=== PATIENT | male | born 1970 | race African-American/Black ===

== ENCOUNTER 2019-07-25 16:10 | Observation (INO) ==
--- NOTE | 2019-07-25 16:28 | DR.CP ---
HPI Time Seen Time Seen by Provider: 07/25/19 16:20 HPI Comment HPI Comment: PATIENT IS 46YR OLD MALE IN ED WITH MID SUBSTERNAL CHEST PAIN TIMES 5HRS. PAIN 7/10, SHARP AND RADIATES TO LEFT SHOULDER ASSOCIATED WITH SOB, WEAKNESS BRIEF PERIOD OF DIAPHORESIS.PATIENT SAID PAIN STARTED MILD AND PROGRESSIVELY GOT WORSE. DID NOT TAKE ANY MEDICATION FOR PAIN. Complaint Chief Complaint Doctor Comments: CHEST PAIN TIMES SEVERAL HOURS. Reviewed Nurses Notes Review: Yes Source History Provided: Patient Mode of Arrival Mode of Arrival: Ambulatory Timing Came on: Suddenly Pain: Present Now Duration Duration: Constant Duration: Hours Location Location of Chest Pain: Chest Chest Pain Radiation Location: Left Shoulder Context Onset: With light exertion Cardiac Risk Factors: Smoker PE Risk Factors: None History of: None Prehospital Care: None Quality Quality: Sharp Severity Severity: Moderate Modifying Factors Worsens: Exertion and Movement Impoves: Rest Associated Signs and Symptoms Associated Signs and Symptoms: Shortness of Breath, Diaphoresis and Other (WEAKNESS.) ROS Review of Systems Constitutional: No Symptoms Reported, See HPI, Weakness and Fatigue; negative Fever Eyes: No Symptoms Reported and See HPI; negative Eye Pain, Blurred Vision, Photo phobia and Diplopia ENTM: No Symptoms Reported and See HPI; negative Ear Pain, Nose Discharge, Nose Congestion and Throat Pain Respiratoy: See HPI and Short of Breath; negative Productive Cough, Non-Produ ctive Cough and Wheezing Cardiovascular: No Symptoms Reported and See HPI; negative Chest Pain, Edema, Palpitations, Syncope and Cyanosis Gastrointestinal/Abdominal: No Symptoms Reported and See HPI; negative Abdominal Pain, Constipation, Diarrhea, Nausea and Vomiting Genitourinary: No Symptoms Reported and See HPI; negative Dysuria, Frequency, Hematuria and Pain Neurological: See HPI and Weakness; negative Headache and Dizziness Musculoskeletal: No Symptoms Reported, See HPI and Muscle Pain; negative Back Pain, Chest wall and Rib(s) Integumentary: No Symptoms Reported and See HPI; negative Change in Color, Rash and Juandice Hematologic/Lymphatic: No Symptoms Reported and See HPI; negative Easy Bleeding, Easy Bruising and Swollen Glands Endocrine: No Symptoms Reported and See HPI; negative Increased Thirst, Increased Urine and Decreased Appetite Psychiatric: No Symptoms Reported and See HPI All Other Systems: Reviewed and Negative PE Vitals Vitals: Temperature 97.7 F Pulse Rate 79 Respiratory Rate 21 Blood Pressure 137/90 O2 Sat by Pulse Oximetry 99 General Limitations: No Limitations General Appearance: Alert and In No Apparent Distress Head Head Exam: Normal Inspection and Atraumatic Eyes Eye exam: Normal Appearance, PERRL and EOMI; negative Scleral Icterus and Conjunctival Injection ENT ENT Exam: Normal Exam, Normal Oropharynx, Normal External Ear Exam and TM's Normal Bilaterally Chest Chest Inspection: Symmetric Chest Wall Rise and Other (CHEST PAIN); negative Tenderness and Rash Respiratory Respiratory Exam: Normal Lung Sounds Bilat; negative Accessory Muscle Use, Chest Wall Tenderness and Respiratory Distress Respiratory Exam: Bilateral: Clear to Auscultation Cardiovascular Cardiovascular Exam: Regular Rate, Normal Rhythm and Normal Heart Sounds; negative Systolic Murmur and Diastolic Murmur Pulse: Normal Edema: Normal Abdominal Exam Abdominal Exam: Normal Inspection, Normal Bowel Sounds and Soft; negative Tenderness Extremities Extremities Exam: Normal Inspection and Normal Capillary Refill; negative Tenderness, Edema and Calf Tenderness Back Back Exam: Normal Inspection; negative Tenderness, (R) CVA Tenderness, (L) CVA Tenderness, Paraspinal Tenderness and Vertebral Tenderness Neurologic Neurological Exam: Alert, Oriented X3 and CN II-XII Intact; negative Motor Sensory Deficit Psychiatric Psychiatric Exam: Normal Affect and Normal Mood Skin Skin Exam: Warm, Dry, Intact and Normal Color MDM Differential Diagnosis Differential Diagnosis: Angina, Chest Wall Pain, Cholelithasis, CHF, Costochondritis, Esophageal Reflux/Spasm, Gastritis, Myocardial Infarction, Pericarditis, Pleuritis, Pancreatitis, Pneumonia, Pneumothorax and Pulmonary Embolus COURSE Treatment Treatment: SEE ORDERS. Education/Counseling Education/Counseling: Patient Educated On: Treatment; negative Needs for Follow Up ROR Labs Reviewed Result Diagrams: 07/25/19 16:26 07/25/19 16:26 Laboratory: WBC 8.6 X10^3/uL (3.6-10.0) 07/25/19 16:26 RBC 4.81 X10^6/uL (4.7-6.0) 07/25/19 16:26 Hgb 15.3 g/dL (13.5-18.0) 07/25/19 16:26 Hct 44.4 % (42.0-54.0) 07/25/19 16:26 MCV 92.3 fL (80.0-100.0) 07/25/19 16:26 MCH 31.9 pg (27.0-34.0) 07/25/19 16:26 MCHC 34.6 g/dL (33.0-35.0) 07/25/19 16: RDW 12.9 % (11.6-16.5) 07/25/19 16:26 Plt Count 250 X10^3/uL (150.0-450.0) 07/25/19 16:26 MPV 6.6 fL (7.4-11.0) L 07/25/19 16:26 Neut % (Auto) 76.8 % (42.0-75.0) H 07/25/19 16:26 Lymph % (Auto) 15.8 % (21.0-51.0) L 07/25/19 16: [place] % (Auto) 6.1 % (0.0-13.0) 07/25/19 16: Eos % (Auto) 0.9 % (0.9-2.9) 07/25/19 16: Baso % (Auto) 0.4 % (0.2-1.0) 07/25/19 16:26 Neut # (Auto) 6.6 x10^3/uL (2.2-4.8) H 07/25/19 16:26 Lymph # (Auto) 1.4 X10^3/uL (1.3-2.9) 07/25/19 16:26 [place] # (Auto) 0.5 x10^3/uL (0.3-0.8) 07/25/19 16:26 Eos # (Auto) 0.1 x10^3/uL (0.0-0.2) 07/25/19 16: Baso # (Auto) 0.0 X10^3/uL (0.0-0.1) 07/25/19 16: Absolute Nucleated RBC 0.0 /100WBC 07/25/19 16: ESR 8 MM/HOUR (0-15) 07/25/19 16: PT 13.6 SECONDS (11.8-14.3) 07/25/19 16: INR Target Range - 07/25/19 16: INR 1.08 (0.8-1.3) 07/25/19 16: APTT 27.7 SECONDS (22.9-36.5) 07/25/19 16:26 PTT Comment - 07/25/19 16:26 D-Dimer 205 ng/mL (0-400) 07/25/19 16:26 Sodium 141 mmol/L (136-145) 07/25/19 16:26 Corrected Sodium 141 mmol/L (136-145) 07/25/19 16:26 Potassium 3.5 mmol/L (3.5-5.1) 07/25/19 16:26 Chloride 103 mmol/L (98-107) 07/25/19 16:26 Carbon Dioxide 29.3 mmol/L (21-32) 07/25/19 16:26 BUN 13 mg/dL (7-18) 07/25/19 16:26 Creatinine 1.45 mg/dL (0.70-1.30) H 07/25/19 16:26 Est GFR (MDRD) Af Amer > 60 (>60) 07/25/19 16:26 Est GFR (MDRD) Non-Af 55 (>60) L 07/25/19 16:26 Glucose 117 mg/dL (65-99) H 07/25/19 16:26 Calcium 8.6 mg/dL (8.5-10.1) 07/25/19 16:26 Corrected Calcium TNP 07/25/19 16:26 Magnesium 1.9 mg/dL (1.7-2.9) 07/25/19 16:26 Total Bilirubin 0.50 mg/dL (0.2-1.0) 07/25/19 16:26 AST 21 Units/L (15-37) 07/25/19 16:26 ALT 20 Units/L (12-78) 07/25/19 16:26 Alkaline Phosphatase 85 Units/L (46-116) 07/25/19 16:26 Creatine Kinase 372 Units/L (39-308) H 07/25/19 16:26 CK-MB (CK-2) 2.3 ng/mL (0-4.0) 07/25/19 16:26 CK/CKMB % Calc 0.6 % (<4) 07/25/19 16:26 Troponin I < 0.02 ng/mL (0-1.5) 07/25/19 16:26 C-Reactive Protein 5.60 mg/L (0-3.0) H 07/25/19 16:26 Total Protein 7.8 g/dL (6.4-8.2) 07/25/19 16:26 Albumin 3.7 g/dL (3.4-5.0) 07/25/19 16:26 Globulin 4.1 g/dL (2.5-4.5) 07/25/19 16:26 Albumin/Globulin Ratio 0.9 Ratio (1.1-2.1) L 07/25/19 16:26 Specimen Type Clean catch urine 07/25/19 18:16 Urine Color Yellow (YELLOW) 07/25/19 18:16 Urine Appearance Clear (CLEAR) 07/25/19 18:16 Urine pH 6.5 (5.0 - 8.0) 07/25/19 18:16 Ur Specific [place] 1.015 (1.000-1.030) 07/25/19 18:16 Urine Protein 1+ (NEGATIVE) 07/25/19 18:16 Urine Glucose (UA) Negative (NEGATIVE) 07/25/19 18:16 Urine Ketones Negative (NEGATIVE) 07/25/19 18:16 Urine Occult Blood 1+ (NEGATIVE) 07/25/19 18:16 Urine Nitrite Negative (NEGATIVE) 07/25/19 18:16 Urine Bilirubin Negative (NEGATIVE) 07/25/19 18:16 Urine Urobilinogen Normal (NORMAL) 07/25/19 18:16 Ur Leukocyte Esterase Negative (NEGATIVE) 07/25/19 18:16 Urine RBC 3-5 /HPF (0-3) A 07/25/19 18:16 Urine WBC 0-2 /HPF (0-5) 07/25/19 18:16 Ur Squamous Epith Cells Rare /HPF (NEGATIVE) 07/25/19 18:16 Urine Bacteria Negative /HPF (NEGATIVE) 07/25/19 18:16 Ur Culture Indicated? No/not indicated 07/25/19 18:16 Urine Opiates Screen Negative (NEG=<300) 07/25/19 18:16 Urine Methadone Screen Negative (NEG=<300) 07/25/19 18:16 Ur Barbiturates Screen Negative (NEG=<200) 07/25/19 18:16 Ur Phencyclidine Scrn Negative (NEG=<25) 07/25/19 18:16 Ur Amphetamines Screen Negative (NEG=<1000) 09/13/19 18:16 U Benzodiazepines Scrn Negative (NEG=<200) 07/25/19 18:16 Urine Cocaine Screen Negative (NEG=<300) 07/25/19 18:16 U Marijuana (THC) Screen Negative (NEG=<50) 07/25/19 18:16 EKG Rate: 66 [place]: Normal Rhythm: NSR Block: 1 Hypertrophy: None ST: New (PERICARDITIS.) Opioid Opioid Risk Tool Age (Chao box if 16-45): No Total: 0 Total Score Risk Category: Low Risk Copyright: Conrad CONTRERAS predicting aberrant behaviors
--- NOTE | 2019-07-25 16:35 | RAD ---
Chest, one view Indication: Chest pain Comparison: None Findings: Accounting for AP technique, the cardiac silhouette is borderline enlarged without congestive failure. No focal infiltrate or significant effusion. No pneumothorax. Impression: Borderline cardiomegaly without CHF or additional acute cardiopulmonary abnormality. Reported By:
[2019-07-25 16:37] VITALS: BMI 28.1
[2019-07-25 16:39] LABS: BASOPHILS % (AUTO) 0.4 % (0.2-1.0); EOSINOPHILS # (AUTO) 0.1 x10^3/uL (0.0-0.2); EOSINOPHILS % (AUTO) 0.9 % (0.9-2.9); HEMATOCRIT 44.4 % (42.0-54.0); HEMOGLOBIN 15.3 g/dL (13.5-18.0); LYMPHOCYTES # (AUTO) 1.4 X10^3/uL (1.3-2.9); LYMPHOCYTES % (AUTO) 15.8 % (21.0-51.0); MEAN CORPUSCULAR HEMOGLOBIN 31.9 pg (27.0-34.0); MEAN CORPUSCULAR HGB CONC 34.6 g/dL (33.0-35.0); MEAN CORPUSCULAR VOLUME 92.3 fL (80.0-100.0); MEAN PLATELET VOLUME 6.6 fL (7.4-11.0); MONOCYTES # (AUTO) 0.5 x10^3/uL (0.3-0.8); MONOCYTES % (AUTO) 6.1 % (0.0-13.0); NEUTROPHILS # (AUTO) 6.6 x10^3/uL (2.2-4.8); NEUTROPHILS % (AUTO) 76.8 % (42.0-75.0); PLATELET COUNT 250 X10^3/uL (150.0-450.0); RED BLOOD COUNT 4.81 X10^6/uL (4.7-6.0); RED CELL DISTRIBUTION WIDTH 12.9 % (11.6-16.5); WHITE BLOOD COUNT 8.6 X10^3/uL (3.6-10.0)
[2019-07-25] MEDS: ASPIRIN 81 MG CHEWTAB PO SCH (16:49)
[2019-07-25 16:52] LABS: BLOOD UREA NITROGEN 13 mg/dL (7-18); CALCIUM 8.6 mg/dL (8.5-10.1); CARBON DIOXIDE 29.3 mmol/L (21-32); CHLORIDE 103 mmol/L (98-107); COR NA(FOR HYPERGLY) 141 mmol/L (136-145); CREATININE 1.45 mg/dL (0.70-1.30); SODIUM 141 mmol/L (136-145); TROPONIN I < 0.02 ng/mL (0-1.5); eGFR NON BLACK RACES 55 (>60)
[2019-07-25 16:56] LABS: ALANINE AMINOTRANSFERASE 20 Units/L (12-78); ALBUMIN 3.7 g/dL (3.4-5.0); ALKALINE PHOSPHATASE 85 Units/L (46-116); ASPARTATE AMINO TRANSFERASE 21 Units/L (15-37); CKMB % 0.6 % (<4); CREATINE KINASE 372 Units/L (39-308); CREATINE KINASE MB 2.3 ng/mL (0-4.0); MAGNESIUM 1.9 mg/dL (1.7-2.9); TOTAL PROTEIN 7.8 g/dL (6.4-8.2)
[2019-07-25 18:25] LABS: BILIRUBIN,URINE NEGATIVE (NEGATIVE); BLOOD/HEMOGLOBIN,URINE 1+ (NEGATIVE); GLUCOSE, URINE NEGATIVE (NEGATIVE); KETONES,URINE NEGATIVE (NEGATIVE); LEUKOCYTE ESTERASE ,URINE NEGATIVE (NEGATIVE); NITRITES,URINE NEGATIVE (NEGATIVE); PH,URINE 6.5 (5.0 - 8.0); PROTEIN,URINE 1+ (NEGATIVE); UROBILINOGEN,URINE NORMAL (NORMAL)
[2019-07-25 18:34] LABS: APPEARANCE,URINE CLEAR (CLEAR); COLOR,URINE YELLOW (YELLOW)
[2019-07-25 18:37] LABS: BACTERIA,URINE NEGATIVE /HPF (NEGATIVE); SQUAMOUS EPITHELIAL CELL,UR RARE /HPF (NEGATIVE)
--- NOTE | 2019-07-25 18:41 | CT ---
CTA chest Indication: Mid sternal chest pain Technique: Helical CT images of the chest were obtained with IV contrast. Reformatted images in the coronal and sagittal planes and 3D MIP images were also generated for review. Comparison: None Findings: Contrast bolus timing is adequate for detection of PTE. No central or segmental pulmonary arterial filling defects are identified. There is no pulmonary arterial dilatation or evidence of right heart strain. The heart is mildly enlarged without significant pericardial effusion. The thoracic aorta and proximal great vessels are normal in contour and caliber. Central airways are patent. There is no mediastinal or bulky hilar lymphadenopathy. There are subtle ground-glass opacities within the right upper lobe. The remainder of the lungs are clear apart from minimal bibasilar atelectasis. No pleural effusion or pneumothorax. Limited images through the upper abdomen demonstrate no acute abnormality. No aggressive osseous lesions. Impression: No central or segmental PTE identified. Mild cardiomegaly without CHF. Subtle ground-glass opacities within the right lung apex. Correlate clinically for developing pneumonitis. Reported By:
[2019-07-25] MEDS ORDERED: DEMEROL INJ IM ONE (19:12)
[2019-07-25] MEDS ORDERED: ZOFRAN INJ 4 MG VIAL IM ONE (19:12)
[2019-07-25] MEDS ORDERED: ROCEPHIN VIAL 1 GRAM IVP ONE (19:36)
[2019-07-25] MEDS ORDERED: ROCEPHIN VIAL 1 GRAM ONE (19:44)
[2019-07-25] MEDS: DUONEB 0.5 MG/3 MG NEB PRN (20:10)
[2019-07-25] MEDS ORDERED: DUONEB 0.5 MG/3 MG ONE (20:10)
[2019-07-25] MEDS: NS 1000 ML 1,000 ML IV SCH (20:23)
[2019-07-25] MEDS ORDERED: NS 1000 ML 1,000 ML ONE (20:23)
[2019-07-25 23:48] LABS: CKMB % 0.4 % (<4); CREATINE KINASE 280 Units/L (39-308); CREATINE KINASE MB < 1.0 ng/mL (0-4.0); TROPONIN I < 0.02 ng/mL (0-1.5)
[2019-07-26 05:33] LABS: BASOPHILS % (AUTO) 0.3 % (0.2-1.0); EOSINOPHILS # (AUTO) 0.1 x10^3/uL (0.0-0.2); HEMATOCRIT 43.4 % (42.0-54.0); HEMOGLOBIN 14.7 g/dL (13.5-18.0); LYMPHOCYTES # (AUTO) 1.1 X10^3/uL (1.3-2.9); LYMPHOCYTES % (AUTO) 12.4 % (21.0-51.0); MEAN CORPUSCULAR HEMOGLOBIN 31.6 pg (27.0-34.0); MONOCYTES % (AUTO) 11.4 % (0.0-13.0); NEUTROPHILS # (AUTO) 6.6 x10^3/uL (2.2-4.8); NEUTROPHILS % (AUTO) 74.9 % (42.0-75.0); PLATELET COUNT 238 X10^3/uL (150.0-450.0); RED BLOOD COUNT 4.66 X10^6/uL (4.7-6.0); WHITE BLOOD COUNT 8.8 X10^3/uL (3.6-10.0)
[2019-07-26 05:45] LABS: ALANINE AMINOTRANSFERASE 16 Units/L (12-78); ALBUMIN 3.1 g/dL (3.4-5.0); ALKALINE PHOSPHATASE 94 Units/L (46-116); ASPARTATE AMINO TRANSFERASE 15 Units/L (15-37); BLOOD UREA NITROGEN 15 mg/dL (7-18); CALCIUM 8.2 mg/dL (8.5-10.1); CHLORIDE 107 mmol/L (98-107); COR CA(FOR HYPOALB) 8.9 mg/dL (8.5-10.1); COR NA(FOR HYPERGLY) 143 mmol/L (136-145); CREATININE 1.29 mg/dL (0.70-1.30); SODIUM 142 mmol/L (136-145); TOTAL PROTEIN 7.1 g/dL (6.4-8.2); eGFR NON BLACK RACES > 60 (>60)
[2019-07-26 05:51] LABS: CHOL/HDL RATIO 3.3 (0.0-5.0); CHOLESTEROL 143 mg/dL (0-200); CKMB % 0.4 % (<4); CREATINE KINASE 226 Units/L (39-308); CREATINE KINASE MB < 1.0 ng/mL (0-4.0); HDL CHOLESTEROL 44 mg/dL (40-60); TRIGLYCERIDES 92 mg/dL (0-150); TROPONIN I < 0.02 ng/mL (0-1.5)
[2019-07-26] MEDS ORDERED: ULTRAM PO PRN (05:53)
[2019-07-26] MEDS: DUONEB 0.5 MG/3 MG NEB PRN ×3 (06:15→15:40)
[2019-07-26] MEDS: ASPIRIN 81 MG CHEWTAB PO SCH (08:45)
[2019-07-26] MEDS: ROCEPHIN VIAL 1 GRAM IVP SCH (08:45)
[2019-07-26] MEDS: NS 1000 ML 1,000 ML IV SCH ×2 (10:36→20:39)
[2019-07-26 11:19] LABS: CKMB % 0.5 % (<4); CREATINE KINASE 193 Units/L (39-308); CREATINE KINASE MB < 1.0 ng/mL (0-4.0); TROPONIN I < 0.02 ng/mL (0-1.5)
[2019-07-26] MEDS ORDERED: K-RIDER 10 MEQ/NS 100 ML 10 MEQ/100 ML BAG IV PRN (14:17)
[2019-07-26] MEDS ORDERED: POTASSIUM CHL 40 MEQ/NS 0.45% 500 ML IV PRN (14:17)
[2019-07-26] MEDS ORDERED: KLOR-CON PO PRN (14:17)
[2019-07-26] MEDS ORDERED: POTASSIUM CHLORIDE LIQ 20 MEQ UDC PO PRN (14:17)
[2019-07-26] MEDS ORDERED: POTASSIUM CHL 60 MEQ/NS 0.45% 500 ML IV PRN (14:17)
[2019-07-26] MEDS ORDERED: MICRO K EXTEN CAP 10 MEQ PO PRN (14:17)
[2019-07-26 14:35] LABS: CKMB % 0.6 % (<4); CREATINE KINASE 175 Units/L (39-308); CREATINE KINASE MB < 1.0 ng/mL (0-4.0); TROPONIN I < 0.02 ng/mL (0-1.5)
[2019-07-26] MEDS: K-DUR TAB 20 MEQ PO PRN ×2 (15:20→20:39)
[2019-07-26 18:06] LABS: CKMB % 0.6 % (<4); CREATINE KINASE 157 Units/L (39-308); CREATINE KINASE MB < 1.0 ng/mL (0-4.0); TROPONIN I < 0.02 ng/mL (0-1.5)
[2019-07-27] MEDS: NS 1000 ML 1,000 ML IV SCH (00:11)
[2019-07-27] MEDS: DUONEB 0.5 MG/3 MG NEB PRN ×3 (00:40→08:45)
[2019-07-27 06:00] LABS: BASOPHILS # (AUTO) 0.1 X10^3/uL (0.0-0.1); BASOPHILS % (AUTO) 0.7 % (0.2-1.0); EOSINOPHILS # (AUTO) 0.2 x10^3/uL (0.0-0.2); EOSINOPHILS % (AUTO) 3.3 % (0.9-2.9); HEMATOCRIT 44.2 % (42.0-54.0); HEMOGLOBIN 15.1 g/dL (13.5-18.0); LYMPHOCYTES # (AUTO) 1.7 X10^3/uL (1.3-2.9); LYMPHOCYTES % (AUTO) 23.5 % (21.0-51.0); MEAN CORPUSCULAR HEMOGLOBIN 31.5 pg (27.0-34.0); MEAN CORPUSCULAR HGB CONC 34.2 g/dL (33.0-35.0); MEAN CORPUSCULAR VOLUME 92.2 fL (80.0-100.0); MEAN PLATELET VOLUME 6.4 fL (7.4-11.0); MONOCYTES # (AUTO) 0.6 x10^3/uL (0.3-0.8); MONOCYTES % (AUTO) 8.7 % (0.0-13.0); NEUTROPHILS # (AUTO) 4.7 x10^3/uL (2.2-4.8); NEUTROPHILS % (AUTO) 63.8 % (42.0-75.0); PLATELET COUNT 229 X10^3/uL (150.0-450.0); RED BLOOD COUNT 4.79 X10^6/uL (4.7-6.0); RED CELL DISTRIBUTION WIDTH 12.9 % (11.6-16.5); WHITE BLOOD COUNT 7.3 X10^3/uL (3.6-10.0)
[2019-07-27 06:19] LABS: ALANINE AMINOTRANSFERASE 17 Units/L (12-78); ALBUMIN 3.1 g/dL (3.4-5.0); ALKALINE PHOSPHATASE 73 Units/L (46-116); ASPARTATE AMINO TRANSFERASE 15 Units/L (15-37); BLOOD UREA NITROGEN 17 mg/dL (7-18); CALCIUM 8.5 mg/dL (8.5-10.1); CARBON DIOXIDE 22.4 mmol/L (21-32); CHLORIDE 105 mmol/L (98-107); COR CA(FOR HYPOALB) 9.2 mg/dL (8.5-10.1); CREATININE 1.18 mg/dL (0.70-1.30); SODIUM 137 mmol/L (136-145); TOTAL PROTEIN 7.4 g/dL (6.4-8.2); eGFR NON BLACK RACES > 60 (>60)
[2019-07-27 07:16] LABS: ERYTHROCYTE SEDIMENTATION RATE 18 MM/HOUR (0-15)
[2019-07-27] MEDS: ROCEPHIN VIAL 1 GRAM IVP SCH (08:23)
[2019-07-27] MEDS: ASPIRIN 81 MG CHEWTAB PO SCH (08:23)
[2019-07-27 09:04] VITALS: BP 120/79
== END 2019-07-27 11:10 | disposition home or self-care (01) ==
LOC: MED/SURG 16:10 → EDBD 16:10 → ER 16:10 → MED/SURG 20:55
PROVIDERS: ADMIT Internal Medicine; ATTEND Internal Medicine
DX: I31.9 Disease of pericardium, unspecified; R06.02 Shortness of breath; R94.31 Abnormal electrocardiogram [ECG] [EKG]; R70.0 Elevated erythrocyte sedimentation rate; J18.8 Other pneumonia, unspecified organism; R79.82 Elevated C-reactive protein (CRP); R94.4 Abnormal results of kidney function studies; R07.89 Other chest pain
CPT/HCPCS: 36415; 71010; 71045; 71275; 80053; 80061; 80307; 81001; 82550; 82553; 83735; 83880; 84132; 84484; 85025; 85378; 85610; 85652; 85730; 86140; 87040; 93005; 94640; 94760; 96365; 96367; 96374; 99284; A4222; G0378; G0434; J0696; J7030; J7620